=== PATIENT | female | born 2005 | race Hispanic/Latino ===

== ENCOUNTER 2024-09-29 12:21 | Emergency (ER) | payer OTHER ==
[~2024-09-29] VITALS: Ht 162.6 cm; Wt 62.1 kg
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
[2024-09-29] MEDS ORDERED: IBUP-2077 PO (13:08)
[2024-09-29] MEDS: acetaMINOPHEN 500 MG TABLET PO ONE (13:13)
[2024-09-29 13:18] VITALS: BP 118/79; PULSE 88; RESP 17; TEMP 98.2; O2SAT 100
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
== END 2024-09-29 13:17 | disposition home or self-care (01) ==
LOC: EDH 12:21
DX: S20.219A Contusion of unspecified front wall of thorax, initial encounter (principal); S80.12XA Contusion of left lower leg, initial encounter; V89.2XXA Person injured in unspecified motor-vehicle accident, traffic, initial encounter; Y93.89 Activity, other specified; Y92.89 Other specified places as the place of occurrence of the external cause; Y99.8 Other external cause status
CPT/HCPCS: 36415; 71045; 73590; 84703; 99284